=== PATIENT | male | born 1980 | race Caucasian/White ===

== ENCOUNTER 2022-10-21 10:34 | Emergency (ER) | payer MEDICAID ==
[~2022-10-21] VITALS: Ht 165.1 cm; Wt 95.3 kg
[2022-10-21 10:51] VITALS: BP_SYST 121
--- NOTE | 2022-10-21 11:09 | NUR ---
42 YEARS OLD MALE ALERT, ORIENTED X4 WALKING TO ER C/O LOWER BACK PAIN DENIES INJURY.
[2022-10-21] MEDS ORDERED: IBUP-1971 PO (11:15)
[2022-10-21 11:21] VITALS: BP_SYST 130
--- NOTE | 2022-10-21 11:24 | NUR ---
PATIENT CONDITION STABLE D/C HOME WITH INSTRUCTIONS AFTER CARE REVIEWED UNDERSTOOD LEFT ER AMBULATORY WITH STEADY GAIT.
--- NOTE | 2022-10-21 11:25 | NUR ---
Patient given written and verbal discharge instructions and verbalizes understanding. ER MD discussed with patient the results and treatment provided. Patient in stable condition. ID arm band removed. Rx of given. Patient educated on pain management and to follow up with PMD. Pain Scale . Opportunity for questions provided and answered. Medication side effect fact sheet provided.
== END 2022-10-21 11:21 | disposition home or self-care (01) ==
LOC: SED 10:34
DX: R10.13 Epigastric pain (principal); Z79.899 Other long term (current) drug therapy
CPT/HCPCS: 81002; 99282